=== PATIENT | female | born 1955 | race Two or more races ===

== ENCOUNTER 2024-04-04 19:58 | Emergency (ER) | payer MEDICARE, SELFPAY ==
[2024-04-04 20:05] VITALS: BP 140/93; PULSE 90; RESP 18; TEMP 36.4; O2SAT 98; BMI 34.3
--- NOTE | 2024-04-04 20:10 | XR_ITS ---
Examination: CT cervical spine without contrast 2-D sagittal reconstructions 2-D coronal reconstructions 3-D reconstructions. Exam date and time:April 04, 2024 2101 hrs. Indications: Onset neck pain today CTDI:vol (mGy) 15.6 DLP: (mGycm) 400 Technique: Multiple 2 mm axial sections of the cervical spine have been obtained. The coronal and sagittal reconstructions have been obtained. 3-D reconstructions have been obtained. Low dose protocols were performed. One or more of the following dose reduction techniques were used; automated exposure control, adjustment of the mA and/or KV according to patient size, use of iterative reconstruction technique. Findings: Axial sections demonstrate intact base of the skull. C1 exhibit satisfactory relationship to the odontoid. No acute cervical vertebral body fracture seen. Alignment posterior spinous processes satisfactory. Advanced degenerative disc disease C5-C6 with advanced bilateral neural foraminal stenosis Impression: No acute cervical fracture. Advanced degenerative disc disease C5-C6 with advanced bilateral neural foraminal stenosis Elective MRI cervical spine follow-up would best assess full extent of acquired spinal stenosis
--- NOTE | 2024-04-04 20:10 | XR_ITS ---
Examination: CT brain head without contrast. 2-D sagittal coronal reconstructions Date and time of exam:April 04, 2024 2100 hrs. Indications: Headache with bleeding to the back of the head today Comparison: October 15, 2008 CTDI: vol (mGy):51 DLP: (mGycm):1055 Technique: Multiple CT axial sections of the brain have been obtained, 5 mm slice thickness. Contrast has not been administered. 2-D sagittal, coronal reconstructions have been obtained Low dose protocols were performed. One or more of the following dose reduction techniques were used; automated exposure control, adjustment of the mA and/or KV according to patient size, use of iterative reconstruction technique. Findings: No significant ventricular enlargement. 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 No mass effect or midline shift Basal cisterns are not remarkable. Fourth ventricle is midline. Cranial vault intact. Impression: Negative for acute hemorrhage, mass effect or midline shift Advise clinical correlation and follow-up accordingly
--- NOTE | 2024-04-04 20:12 | EDNOTE_ITS ---
ED General RME/HPI General Chief complaint: Fall Stated complaint: FALL Time Seen by Provider: 04/04/24 20:09 Arrival date/time: 04/04/24 19:58 CC: Headache HPI ground-level fall approximately 30 minutes ago. The patient admits to 10 beers over the course of the day plus sleeping medication became lightheaded and fell patient lives by herself and dialed 911 EMS report she is able to ambulate and pivot onto the gurney patient is awake alert oriented x [address] Glascow coma 15 no slurred speech complaining of pain behind her left ear secondary to an abrasion. The patient has a large amount of matted bloody hair at this site. Patient is awake alert and cooperative. Related Data Home Medications ?Medication ?Instructions ?Recorded ?Confirmed aspirin 81 mg tablet 81 mg PO QDAY 06/23/21 02/19/22 atorvastatin 20 mg tablet 20 mg PO QDAY 06/23/21 02/19/22 levothyroxine 137 mcg tablet 137 mcg PO QDAY 06/23/21 02/19/22 diazepam 2 mg tablet 2 mg PO BID PRN Pain 02/19/22 02/19/22 lisinopril 20 mg tablet 20 mg PO QDAY 02/19/22 02/19/22 naproxen 500 mg tablet 500 mg PO BID 02/19/22 02/19/22 potassium chloride 10 mEq 10 meq PO QDAY 02/19/22 02/19/22 tablet,extended release (Klor-Con) Previous Rx's ?Medication ?Instructions ?Recorded amlodipine 10 mg tablet 10 mg PO QDAY #30 tabs 06/24/21 furosemide 40 mg tablet (Lasix) 40 mg PO QDAY #10 tabs 02/19/22 potassium chloride 20 mEq oral 20 meq PO QDAY #10 ea 02/19/22 packet Allergies Allergy/AdvReac Type Severity Reaction Status Date / Time No Known Allergies Allergy Verified 02/19/23 19:51 Review of Systems Review of Systems Narrative Review of Systems: GEN: No fever, no chills, no weight loss EYES: No discharge, no visual changes, no pain HEENT: No ear pain, no congestion, no sore throat PULM: No shortness of breath, no cough, no congestion CV: No chest pain, no dyspnea on exertion, no palpitations GI: No nausea, no vomiting, no diarrhea, no pain, no constipation : No frequency, no urgency, no dysuria MUSC/SKEL: No joint pain, no back pain SKIN: No rash PSYCH: No hallucinations, no depression HEME/LYMPH: No easy bleeding or bruising tendencies NEURO: No weakness, + headache Past Medical History Past Medical History NEUROLOGIC: Positive Cerebrovascular Accident (2007); Negative Seizures CARDIAC: Positive Hypercholesterolemia, Edema, Hypertension and Varicose Veins; Negative Congestive Heart Failure RESPIRATORY: Negative Chronic Obstructive Pulmonary Disease (COPD) GENITOURINARY: Negative Renal Disease MUSCULOSKELETAL: Positive Arthritis ENDOCRINE: Positive Hypothyroidism; Negative Diabetes Mellitus Type 1 or Diabetes Mellitus Type 2 PSYCHO/SOCIAL: Positive Anxiety OTHER HISTORY: Negative Blood Transfusions, Blood Transfusion Reaction or Anesthesia Reactions Surgical History SURGICAL: Positive Section (X2) Social History SMOKING STATUS: Never smoker SUBSTANCE USE: does not use ED Exam Narrative Physical exam: [General: Obese in mild discomfort but not in any acute distress Head normocephalic HEENT: Within acceptable limits Neck is supple nontender Chest equal chest rise nontender to palpation Respiratory: Clear to auscultation no wheezes crackles or rubs CV: Rate rhythm is regular no murmurs rubs or clicks Abdomen is distended secondary to body habitus soft nontender no masses positive bowel sounds all 4 quadrants Back: No CVA tenderness no spinous process tenderness from cervical spine thoracic and lumbar spine Skin: Large abrasion behind the left ear no active bleeding at the time of exam. Otherwise skin is intact no petechiae rash induration ulceration or crepitus Extremities: Moving all extremity against resistance cap refill less than 2 seconds neurosensory intact Neuro: Awake alert oriented x3 Glascow coma 15 no focal deficits] Course Quality Measures none Orders Category Date Time Status CT cervical spine wo con Stat Exams 04/04/24 20:[address] head/brain wo con Stat Exams 04/04/24 20:10 Completed Tet,Diphth,Pertuss(Acell)-Tdap [Boostrix Vacc] Med 04/04/24 22:10 Discontinued 0.5 ml IMI .ONCE ONE Vital Signs Vital signs: Vital Signs Temperature 97.6 F 04/04/24 20:05 Pulse Rate 90 04/04/24 20:05 Respiratory Rate 18 04/04/24 20:05 Blood Pressure 140/93 H 04/04/24 20:05 Pulse Oximetry (%) 98 04/04/24 20:05 Oxygen Delivery Method Room Air 04/04/24 20:05 [facility] Patient data External records reviewed:: [facility] previous records and EMS form Clinical information provided by:: patient and EMS Social determinants that could affect healthcare access:: alcohol use Patient has the following chronic illnesses:: Hyperlipidemia hypertension hypothyroidism How is presenting disease/condition affected by chronic disease/condition?: uneffected by Evaluation data The following diagnostics were reviewed and interpreted by me:: radiology exam(s) Lab and/or radiology exams considered but not ordered:: CT head and C-spine are negative for any acute findings interpreted by me read by radiology. Interpretation Summary: Patient has a minor scalp abrasion. Patient will be discharged home with fall and scalp abrasion. The patient is intoxicated by admission. Medications Medications considered but not ordered:: None Medication administrations:: Medication Administration History Discontinued Medications Diphtheria/Tetanus/Acell Pertussis (Diphth,Pertuss(Acell),Tet Vac 0.5 Ml Vial) 0.5 ml IMi .ONCE ONE Stop: 04/04/24 22:11 Last Admin: 04/04/24 22:19 Dose: 0.5 ml Documented By: None Consultations Consultation(s) initiated? (list below): No Diagnosis Differential Diagnosis ED Complaint MDM: Closed head injury neck fracture skull fracture Most likely diagnosis given after review of the tests above:: Fall scalp abrasion Admission Indicated Admission indicated?: not indicated Explain why admission is indicated or not indicated:: Stable for outpatient follow-up Admission Request Was there a request for admission?: No Disposition Plan Disposition Plan: Discharge Discharge Attestation Discharge Attestation: The patient and all family members were given an opportunity to ask questions and understood the discharge instructions. Discharge instructions specifically effects, indications for sooner follow up or return to the emergency department, and the expected course of current diagnosis. Patient condition: Stable Medical Decision Making Differential Diagnosis Differential Diagnosis: Closed head injury neck fracture skull fracture Discharge Plan Plan Patient Disposition: HOME (Self Care) Patient condition on transfer: Stable Prescriptions/Referrals Prescriptions/Med Rec: No Action levothyroxine 137 mcg tablet 137 mcg PO QDAY aspirin 81 mg Tablet 81 mg PO QDAY atorvastatin 20 mg tablet 20 mg PO QDAY amlodipine 10 mg tablet 10 mg PO QDAY Qty: 30 0RF lisinopril 20 mg Tablet 20 mg PO QDAY potassium chloride [Klor-Con 10] 10 mEq Tablet Extended Release 10 meq PO QDAY naproxen 500 mg Tablet 500 mg PO BID diazepam 2 mg Tablet 2 mg PO BID PRN (Reason: Pain) Rx Instructions: PATIENT TOOK HALF A TABLET TODAY @ 0700 furosemide [Lasix] 40 mg tablet 40 mg PO QDAY Qty: 10 0RF potassium chloride 20 mEq packet 20 meq PO QDAY Qty: 10 0RF Referrals: Ken Guthrie MD [Primary Care Provider] - In 1 week Problem List Clinical Impression: Fall, Abrasion of scalp Patient/Caregiver Discharge Instructions Education Materials: ED Abrasions, ED Head Injury (Adult) Additional Instructions: Stop drinking alcohol, more important do not combine alcohol with sleeping pills. If there are worsening of symptoms include headache blurred vision seeing spots or intractable vomiting return the emergency room for reevaluation. Print Language: Turkish Stand Alone Forms: Christie Award Info., Patient Portal Info Letter MD Attestation MD Attestation The patient was seen by the midlevel practitioner. I, the co-signing physician, was present during the entire ER visit. While I did not physically examine the patient, I was available for consultation as needed.
[2024-04-04 20:50] VITALS: PULSE 90; RESP 18; O2SAT 97
[2024-04-04] MEDS: DIPHTH,PERTUSS(ACELL),TET VAC 0.5 ML VIAL IMi (22:19)
--- NOTE | 2024-04-04 23:45 | PC.NURSE ---
1030 multiple attempts to call pts family for a pickup have been made with no answer. [employer] was made aware and [employer] was called with no answer. [employer] was informed that RN didnt feel comfortable with pt being left in the lobby untill a flower picker was contacted and arrived because pt was here for a fall. [employer] said to put pt in a wheel chair and set in the lobby to await a ride.
== END 2024-04-04 22:36 | disposition home or self-care (01) ==
PROVIDERS: Emergency Provider Emergency Medicine; PCP Family Medicine
DX: S00.01XA Abrasion of scalp, initial encounter (principal); S00.412A Abrasion of left ear, initial encounter; M54.2 Cervicalgia; W18.30XA Fall on same level, unspecified, initial encounter; Z23 Encounter for immunization
CPT/HCPCS: 70450; 72125; 90471; 90715; 99284